=== PATIENT | female | born 1965 | race Caucasian/White ===

== ENCOUNTER 2022-03-28 18:09 | Emergency (ER) | payer OTHER ==
[2022-03-28 19:25] VITALS: BP 134/81; PULSE 91; RESP 18; TEMP 98.1; BMI 28.5
[2022-03-28] MEDS ORDERED: IBUPROFEN 600 MG TABLET (FP) PO ONE ×2 (20:16→20:19)
== END 2022-03-28 20:36 | disposition home or self-care (01) ==
LOC: JER 18:09
DX: M25.541 Pain in joints of right hand (principal); M25.551 Pain in right hip; W01.0XXA Fall on same level from slipping, tripping and stumbling without subsequent striking against object, initial encounter
CPT/HCPCS: 73130-TC-RT-FY; 99283-25